=== PATIENT | female | born 1950 | race Caucasian/White ===

== ENCOUNTER 2018-11-11 12:34 | Inpatient (IN) | payer MEDICARE, OTHER ==
[~2018-11-11] VITALS: Ht 149.9 cm; Wt 99.8 kg
[~2018-11-11 12:34] MED LIST: ACETAMINOPHEN325 M1; AMOXICILLIN875 MG; ARIXTRA; ASPIRIN EC325 M1; COLACE100 MG; CORTISPORIN OTI10 M2 OT; CORTISPORIN OTI10 ML; DOXYCYCLINE PO; HUMALOG100 UNIT/1; HUMALOG100 UNIT/1 SUBQ; HYZAAR 100-251 EACH; HYZAAR 100-251 EACH PO; LANTUS; LANTUS SUBQ; LOPRESSOR 50 MG50 M1; METAMUCIL PAC1 UDPK1; NORCO 5-325 TA1 EACH PO; OXYCODONE HCL 55 MG; PERCOCET 5-3251 EACH; PHENOBARBITAL97.2 M2; PHENOBARBITAL97.2 M2 PO; PROZAC 20 MG20 MG PO; SIMVASTATIN20 MG PO; TOPROL XL50 MG PO; ZOCOR 20 MG TAB20 M1; ZYRTEC; ZYRTEC-D TABLE1 EAC1 PO
[2018-11-11] MEDS ORDERED: ZOCOR20 MG PO (12:42)
[2018-11-11] MEDS ORDERED: [UNRECOGNIZED DRUG - CODE] PO (12:43)
[2018-11-11] MEDS ORDERED: NEURONTIN 300300 M1 PO (12:45)
[2018-11-11] MEDS ORDERED: FLONASE 0.05%50 MCG NASAL (12:45)
--- NOTE | 2018-11-11 12:58 | NUR ---
XRAY AT BEDSIDE.
[2018-11-11 15:01] LABS: ABSOLUTE LYMPHOCYTES 0.9 thou/uL (0.8-5.3); ABSOLUTE MONOCYTES 0.5 thou/uL (0.0-1.2); BASOPHILS 0.3 %; EOSINOPHILS 0.5 %; HEMATOCRIT 37.7 % (37.0-47.0); HEMOGLOBIN 12.8 gm/dL (12.0-15.0); MCH 30.1 pg (26.0-34.0); MCHC 33.8 g/dL (28.0-37.0); MCV 88.9 fL (80.0-100.0); MONOCYTES 5.7 %; MPV 6.9 fl. (7.2-11.1); NUCLEATED RBCS 0 /100WBC; PLATELET COUNT* 298 thou/uL (150-400); POLYS 82.5 %; RBC 4.24 mil/uL (4.20-5.00); RDW-CV 13.3 % (10.5-14.5); WBC 8.5 thou/uL (4.0-11.0)
[2018-11-11 15:13] LABS: APTT 22.9 Seconds (25.0-31.3); PROTIME 10.3 Seconds (9.20-11.50)
[2018-11-11 15:31] LABS: CALCIUM 9.1 mg/dL (8.5-10.1); CREATININE 0.7 mg/dL (0.6-1.3); POTASSIUM 3.9 mmol/L (3.5-5.1)
[2018-11-11 15:37] LABS: ALBUMIN 3.4 g/dL (3.4-5.0); TOTAL BILIRUBIN 0.3 mg/dL (<0.1-1.0)
[2018-11-11 17:03] VITALS: BP 147/66
[2018-11-11 17:27] VITALS: BP 141/93
--- NOTE | 2018-11-11 18:00 | NUR ---
PATIENT ARRIVED TO UNIT AT APPROX 1730. ALERT AND OREINTED X4. ADMISSION HISTORY AND ASSESSMENT COMPLETED AND CHARTED. VSS ON ROOM AIR, NO COMPLAINTS IN PAIN AT THIS TIME. FLUIDS INFUSING ORDERED. PATIENT IS BEDREST AND WILL USE BEDPAN FOR VOIDING. FALL PRECAUTIIONS IN PLACE. CALL LIGHT WITHIN REACH. NURSING WILL CONTINUE TO MONITOR.
--- NOTE | 2018-11-11 20:08 | NUR ---
PATIENT REFUSED TO HAVE SEIZURE PADS PLACED ON HER BED. THIS NURSE ADVISED AGAINST THIS AND EDUCATED ON THE RISKS OF INJURY SHOULD A SEIZURE OCCUR, PATIENT STILL REFUSED.
[2018-11-11 21:00] VITALS: BP 141/47
[2018-11-12] VITALS (8 sets, daily range): BP systolic 115–165; BP diastolic 47–96
[2018-11-12 07:19] LABS: HEMATOCRIT 34.8 % (37.0-47.0); HEMOGLOBIN 11.7 gm/dL (12.0-15.0); MCH 30.1 pg (26.0-34.0); MCHC 33.7 g/dL (28.0-37.0); MCV 89.3 fL (80.0-100.0); RBC 3.9 mil/uL (4.20-5.00); RDW-CV 13.2 % (10.5-14.5)
[2018-11-12 07:28] LABS: CALCIUM 8.1 mg/dL (8.5-10.1); CREATININE 0.7 mg/dL (0.6-1.3); MAGNESIUM 1.8 mg/dL (1.8-2.4); POTASSIUM 4.1 mmol/L (3.5-5.1)
--- NOTE | 2018-11-12 08:49 | NUR ---
PATIENT HAS SLEPT WELL THROUGHOUT THE NIGHT. VSS ON RA. PAIN WELL CONTROLLED. PAIN MEDICATION GIVEN NEEDED AND CHARTED. PATIENT HAS REMAINED NPO SINCE MIDNIGHT D/T SHCEDULED SURGERY THIS AM. IV IN LEFT AC-NS @ 100ML/HR. SPLINT TO RIGHT LEG IS C/D/I. FALL PRECAUTIONS IN PLACE AND HOURLY ROUNDS MADE. WILL CONTINUE WITH PLAN OF CARE AND NURSING TO MONITOR.
--- NOTE | 2018-11-12 10:21 | NUR ---
PT ALERT AND ORIENTED X 4. NPO SINCE MIDNOC. IVF INFUSING. RECEIVED IV FENTANYL FOR PAIN CONTROL. PARTICIPATED IN THERAPIES THIS MORNING. RIGHT LOWER EXTREMITY SPLINT-C/D/I. PT TO PROCEDURE @ 1010 BY BED.
--- NOTE | 2018-11-12 14:27 | NUR ---
PRINTED CIRCUIT BOARD LAYOUT DESIGNER ATTEMPTED TO MEET PATIENT TO COMPLETE ASSESSMENT. PATIENT OUT OF THE ROOM HAVING PROCEDURE DONE. CM WILL F/U TO COMPLETE ASSESSMENT. P.T. INFORMS THAT THE PATIENT HAS 2 STEPS TO THE ENTRY OF HER HOME, AND HER SPOUSE IS NOT ABLE TO ASSIST HER AT D/C. SO SHE MAY NEED SNF AT D/C. CM WILL F/U TO DISCUSS FURTHER.
--- NOTE | 2018-11-12 15:27 | EKG ---
[place] [address] ELECTROCARDIOGRAM REPORT Name: ROSELIA MATHIAS Room: [address] ADM IN .R.#: [id number] Admission: 11/11/18 Attend Phys: Harshad Mukherjee MD Discharge: Date of : 48 Report #: [id number] THIS REPORT FOR: //name// [facility] ED Test Date: 2018-11-11 Test Time: 14:50:27 Pat Name: ROSELIA MATHIAS Department: Room: [facility] Gender: F Community Dietitian: TANA : 1950 Requested By: Malachi Elder Order Number: [id number] MD: Emir Eason Measurements Intervals [place] Rate: 83 P: 52 FL: 182 QRS: -5 QRSD: 85 T: 119 QT: 391 QTc: 460 Interpretive Statements Sinus rhythm Low voltage, precordial leads Anteroseptal infarct, old Nonspecific T abnormalities, lateral leads Compared to ECG 01/29/2012 12:05:10 Myocardial infarct finding now present T-wave abnormality now present Electronically Signed On 11-12-2018 15:26:57 CHEMICAL DETECTION EXPERT by Emir Eason [email or web address] <ELECTRONICALLY SIGNED> By: Emir Eason MD, [facility] 11/12/18 1526 1450 1450 Emir Eason MD, [facility] /EPI
--- NOTE | 2018-11-12 18:53 | NUR ---
PT RETURNED TO UNIT @ 1235. PT NON-WEIGHT BEARING. UP TO BSC WITH A X 1. IV PATENT. PT HAS SUCTION SET UP FOR MUCOUS. RECEIVED IV ZOFRAN FOR NAUSEA AND FENTANYL FOR PAIN. INSULIN HELD IN AM. PT REFUSED ADDITIONAL INSULIN PER SLIDING SCALE @ 1630. ABLE TO TOLERATE DINNER. DRESSING ON RLE-C/D/I. HOURLY ROUNDS MAINTAINED. CALL LIGHT WITHIN REACH.
[2018-11-13 04:00] VITALS: BP 138/44
--- NOTE | 2018-11-13 05:35 | NUR ---
PT POST OP ORIF OF RIGHT TIBIA. PROPER ALIGNMENT MAINTAINED. EXTREMITY ELEVATED ON PILLOW. PT RECIEVING PO NORCO FOR PAIN CONTROL WITH GOOD RESULTS. PT HAS CONTINUOUS PULSE OXYMETRY. PT WEARING CPAP TO FOR OBSTRUCTIVE SLEEP APNEA. O2 SAT > 94% DURING SHIFT. PT HAD LOW GRADE TEMP AT MIDNIGHT. HEART RATE AND BLOOD PRESSURE WITHIN NORMAL LIMITS. NO ACUTE CHANGES, WILL CONTINUE PLAN OF CARE.
[2018-11-13 08:00] VITALS: BP 106/43
--- NOTE | 2018-11-13 16:59 | NUR ---
SPOKE TO THE PATIENT TO DISCUSS HER HOME SITUAION, DISCHARGE PLANNING, AND TO INFORM OF THE ROLE OF CM. PATIENT ALERT AND ORIENTED. 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 PATIENT INFORMS THAT SHE PAYS A LADY TO DEEP CLEAN HER HOME ONCE A MONTH. PATIENT RESIDES AT HOME WITH SPOUSE, BUT INFORMS THAT HE IS UNABLE TO ASSIST HER AT HOME WITH CARES. PATIENT OWNS A ROLLATOR WALKER THAT HER DTR PURCHASED. PATIENT HAS NO HX OF HH OR SNF AND PLANS TO RETURN HOME AT D/C. PATIENT'S DTR ON HER WAY HERE FROM [place] AND SHE WILL STAY WITH THE PATIENT FOR 5 DAYS AT D/C AND A FAMILY FRIEND PLANS TO STAY WITH THE PATIENT FOR THE REMAINDER OF THE TIME NEEDED. PATIENT WILL NEED A WALKER, AND W/C AT D/C. D/C FIRE POT OPERATOR PROVIDED INFO TO THE PATIENT FOR W/C RENTAL WITH [facility] [employer] [employer] ([phone]). D/C FIRE POT OPERATOR SPOKE TO OJ WITH PROVIDER [employer] TO INFORM OF THE NEED TO CHECK PATIENT'S BENEFITS FOR A WALKER. OJ RETURNED CALL TO INFORM THAT THE PATIENT WAS APPROVED FOR A WALKER. P.T. TO DISPENSE WALKER FOR THE PATIENT PRIOR TO D/C. CM WILL REMAIN AVAILABLE TO ASSIST AND FOLLOW NEEDED.
[2018-11-13 17:03] VITALS: BP 127/52
--- NOTE | 2018-11-13 18:44 | NUR ---
PT IS ALERT AND ORIENTED X 4. RIGHT FOOT PAIN MANAGED WITH PO HYDROCODONE. DENIES NAUSEA. PARTICIPATED WITH THERAPY DURING THE DAY. UP WITH ASSIST X 1-2 WITH GAIT BELT AND WALKER. DRESSING ON RIGHT LOWER EXTREMITY-C/D/I. HOURLY ROUNDS MAINTAINED. CALL LIGHT WITHIN REACH.
[2018-11-13 21:40] VITALS: BP 130/54
--- NOTE | 2018-11-14 05:44 | NUR ---
PT SLEPT MOST OF SHIFT. ASSESSMENT DOCUMENTED. MEDS GIVEN PER E-DEC. IV PATENT. PAIN MEDS GIVEN PER E-MAR WITH RELIEF. DRESSING TO LEG C/D/I. NIGHT TIME INSULIN GIVEN WITH SNACK. PT VOIDED PER BSC. PT EXPRESSED CONCERNS OF NOT HAVING A BOWEL MOVEMENT YET AND REQUESTS TO TAKE SOMETHING IN THE MORNING TO HELP. WILL CONTINUE WITH PLAN OF CARE.
[2018-11-14 09:00] VITALS: BP 145/90
[2018-11-14 14:59] VITALS: BP 145/90
--- NOTE | 2018-11-14 15:01 | NUR ---
Patient and family now agreeable with home health. Physician wrote orders. Faxed orders to [facility] and called to confirm receipt. Faxed ambulance transfer form to [facility] and RN will call to schedule transport. No other needs identified.
[2018-11-14 16:05] VITALS: BP 145/90
[2018-11-14] MEDS ORDERED: NORCO 5-325 TA1 EACH PO (16:16)
[2018-11-14] MEDS ORDERED: ULTRAM 50MG TAB50 MG PO (16:17)
[2018-11-14] MEDS ORDERED: LITE COAT ASPI325 MG PO (16:24)
--- NOTE | 2018-11-14 17:55 | NUR ---
PATIENT DISCHARGED FROM UNIT AT 1730. ALERT AND ORIENTED X 4. VITAL SIGNS STABLE ON ROOM AIR. IV DISCONTINUED. DENIES NAUSEA. PAIN MANAGED WITH PO PAIN MEDICATION. DISCHARGE INSTRUCTIONS, MEDICATION INFORMATION, AND SCRIPTS GIVEN TO PATIENT. LEFT WITH ALL BELONGINGS. PATIENT LEFT WITH EMS VIA AMBULANCE TO TRANSPORT HOME.
[2018-11-14 18:11] VITALS: BP 145/90
--- NOTE | 2018-11-18 08:35 | OP ---
[address] [address] OPERATIVE REPORT Name: ROSELIA MATHIAS Brian Room: [address]#: [id number] Admission: 11/11/18 Attend Phys: Harshad Mukherjee MD Discharge: 11/14/18 Date of : 48 Report #: [id number] THIS REPORT FOR: //name// CC: Ruth Mukherjee DICTATED BY: Marvel Walls DO DATE OF SERVICE: 11/12/2018 POSTOPERATIVE DIAGNOSIS: Closed right bimalleolar ankle fracture. PROCEDURE: 1. Closed reduction right bimalleolar ankle fracture. 2. Physician-guided fluoroscopy. SURGEON: Tim Mac DO STITCHDOWNS TOE FORMER: Marvel Walls DO ANESTHESIA: General LMA. ESTIMATED BLOOD LOSS: 0 mL. PREOPERATIVE ANTIBIOTICS: None. DRAINS: None. COMPLICATIONS: None. CONDITION OF PATIENT: Stable to PACU. INDICATIONS FOR PROCEDURE: This 67-year-old female suffered a right bimalleolar ankle fracture with lateral subluxation. She was placed in a splint and admitted to the hospital with this injury. Orthopedics was consulted and made aware of the injury and the patient will need operative fixation; however, swelling will inhibit that being done acutely and with the way her tibiotalar joint was sitting, recommended a closed reduction for comfort and better control of the swelling. DESCRIPTION OF PROCEDURE: Once written and verbal consent was obtained, the patient was taken from the preoperative holding area to the operating suite, given the benefit of general anesthesia. Her splint was removed. Timeout was performed to verify the correct operative site, location and procedure. Closed reduction was performed using fluoroscopy. A posterior splint and stirrup was placed to hold the reduction. Fluoroscopy was used to verify the reduction. [address] [address] OPERATIVE REPORT Name: ROSELIA MATHIAS Room: [address]#: [id number] Admission: 11/11/18 Attend Phys: Harshad Mukherjee MD Discharge: 11/14/18 Date of : 48 Report #: [id number] The splint was hardened and once splint placed and wrapped, the patient was awakened, taken to PACU in stable condition. The patient tolerated the procedure well. No complications. POSTOPERATIVE COURSE: The patient will be nonweightbearing. She will follow up in the outpatient clinic in 7 days for surgical planning and scheduling. <ELECTRONICALLY SIGNED> By: Carlos Howell DO 11/18/18 0835 1133 [id number] Mac DO /nt
== END 2018-11-14 17:30 | disposition home health service (06) | DRG 563 ==
LOC: M.ERS 12:34 → M.TBA-ER 16:29 → M.ORTHSURG 16:29
PROVIDERS: Family Medicine; ADMIT Family Medicine
DX: S82.841A Displaced bimalleolar fracture of right lower leg, initial encounter for closed fracture (principal); I10 Essential (primary) hypertension; E11.9 Type 2 diabetes mellitus without complications; E78.00 Pure hypercholesterolemia, unspecified; S93.431A Sprain of tibiofibular ligament of right ankle, initial encounter; Z96.653 Presence of artificial knee joint, bilateral; G40.909 Epilepsy, unspecified, not intractable, without status epilepticus; G47.33 Obstructive sleep apnea (adult) (pediatric); W00.0XXA Fall on same level due to ice and snow, initial encounter; Y93.89 Activity, other specified; Y92.89 Other specified places as the place of occurrence of the external cause; Y99.8 Other external cause status; Z79.4 Long term (current) use of insulin; Z79.899 Other long term (current) drug therapy; Z88.8 Allergy status to other drugs, medicaments and biological substances

== ENCOUNTER 2018-11-27 15:40 | Inpatient (IN) | payer MEDICARE, OTHER ==
[~2018-11-27] VITALS: Ht 149.9 cm; Wt 98.9 kg
[~2018-11-27 15:40] MED LIST changes: +FLONASE 0.05%50 MCG NASAL; +LITE COAT ASPI325 MG PO; +LOSARTAN-HCTZ1 EAC3 PO; +NEURONTIN 300300 M1 PO; +SENNA PLUS TAB1 EACH PO; +ULTRAM 50MG TAB50 MG PO; +ZOCOR20 MG PO
[2018-11-27 18:53] VITALS: BP 153/71
[2018-11-27] MEDS ORDERED: NORCO 5-325 TA1 EACH PO (19:43)
[2018-11-27] MEDS ORDERED: TRAMADOL 50 MG50 MG PO (19:44)
[2018-11-27 20:00] VITALS: BP 190/95
[2018-11-28 04:32] LABS: MCH 30.5 pg (26.0-34.0); MCHC 34.4 g/dL (28.0-37.0); MCV 88.6 fL (80.0-100.0); MPV 6.9 fl. (7.2-11.1); RBC 3.62 mil/uL (4.20-5.00); RDW-CV 13.3 % (10.5-14.5); WBC 5.5 thou/uL (4.0-11.0)
[2018-11-28 04:48] LABS: CALCIUM 8.3 mg/dL (8.5-10.1); CREATININE 0.7 mg/dL (0.6-1.3); POTASSIUM 3.8 mmol/L (3.5-5.1)
[2018-11-28 08:45] VITALS: BP 142/55
[2018-11-28 20:54] VITALS: BP 129/56
[2018-11-29 08:37] VITALS: BP 135/60
[2018-11-29 19:45] VITALS: BP 130/62
[2018-11-30 08:21] VITALS: BP 150/85
[2018-11-30 19:45] VITALS: BP 148/56
[2018-12-01 08:00] VITALS: BP 133/45
[2018-12-01 20:00] VITALS: BP 132/68
[2018-12-02 07:30] VITALS: BP 138/58
[2018-12-02 20:33] VITALS: BP 150/68
[2018-12-03 07:48] VITALS: BP 141/63
[2018-12-03 20:36] VITALS: BP 148/53
[2018-12-04 08:20] VITALS: BP 143/59
[2018-12-04 20:33] VITALS: BP 129/60
[2018-12-05 07:00] VITALS: BP 145/45
[2018-12-05 20:36] VITALS: BP 135/69
[2018-12-06 08:30] VITALS: BP 172/64
[2018-12-06 20:00] VITALS: BP 134/53
[2018-12-07 09:43] VITALS: BP 147/75
[2018-12-07 19:54] VITALS: BP 144/62
[2018-12-08 07:57] VITALS: BP 139/56
[2018-12-08 20:34] VITALS: BP 127/49
[2018-12-09 04:27] LABS: ABSOLUTE BASOPHILS 0.1 thou/uL (0.0-0.2); ABSOLUTE EOSINOPHILS 0.3 thou/uL (0.0-0.7); ABSOLUTE LYMPHOCYTES 2.1 thou/uL (0.8-5.3); ABSOLUTE MONOCYTES 0.5 thou/uL (0.0-1.2); ABSOLUTE NEUTROPHILS 2.4 thou/uL (1.6-8.1); EOSINOPHILS 4.8 %; HEMATOCRIT 34.4 % (37.0-47.0); HEMOGLOBIN 11.6 gm/dL (12.0-15.0); LYMPHOCYTES 39.5 %; MCH 30.2 pg (26.0-34.0); MCHC 33.7 g/dL (28.0-37.0); MCV 89.6 fL (80.0-100.0); MONOCYTES 9.7 %; MPV 7.3 fl. (7.2-11.1); NUCLEATED RBCS 0 /100WBC; PLATELET COUNT* 400 thou/uL (150-400); RBC 3.83 mil/uL (4.20-5.00); RDW-CV 13.7 % (10.5-14.5); WBC 5.3 thou/uL (4.0-11.0)
[2018-12-09 04:28] LABS: CALCIUM 8.6 mg/dL (8.5-10.1); CREATININE 0.6 mg/dL (0.6-1.3); POTASSIUM 3.7 mmol/L (3.5-5.1)
[2018-12-09 08:35] VITALS: BP 138/62
[2018-12-09 13:35] VITALS: BP 138/62
[2018-12-09 13:56] VITALS: BP 138/62
== END 2018-12-09 15:41 | disposition home health service (06) | DRG 563 ==
LOC: M.REH 15:40
PROVIDERS: Family Medicine; ADMIT Physical Medicine & Rehabilitation
DX: S82.831A Other fracture of upper and lower end of right fibula, initial encounter for closed fracture (principal); G47.33 Obstructive sleep apnea (adult) (pediatric); G40.909 Epilepsy, unspecified, not intractable, without status epilepticus; E78.5 Hyperlipidemia, unspecified; I10 Essential (primary) hypertension; E11.9 Type 2 diabetes mellitus without complications; W00.0XXA Fall on same level due to ice and snow, initial encounter; Y93.29 Activity, other involving ice and snow; Y92.89 Other specified places as the place of occurrence of the external cause; Y99.8 Other external cause status; Z91.048 Other nonmedicinal substance allergy status; Z79.899 Other long term (current) drug therapy; Z79.82 Long term (current) use of aspirin; Z79.4 Long term (current) use of insulin; Z96.651 Presence of right artificial knee joint; E78.00 Pure hypercholesterolemia, unspecified

== ENCOUNTER → 2021-01-05 | Outpatient (CLI) | payer MEDICARE, OTHER ==
[~2021-01-05] MED LIST changes: +TRAMADOL 50 MG50 MG PO
[2021-01-05 09:01] LABS: ABSOLUTE EOSINOPHILS 0.2 thou/uL (0.0-0.7); ABSOLUTE LYMPHOCYTES 1.8 thou/uL (0.8-5.3); ABSOLUTE MONOCYTES 0.6 thou/uL (0.0-1.2); ABSOLUTE NEUTROPHILS 3.4 thou/uL (1.6-8.1); BASOPHILS 0.7 %; HEMOGLOBIN 12.4 gm/dL (12.0-15.0); LYMPHOCYTES 29.7 %; MCH 29.3 pg (26.0-34.0); MCHC 33.5 g/dL (28.0-37.0); MCV 87.5 fL (80.0-100.0); MONOCYTES 10.1 %; MPV 6.8 fl. (7.2-11.1); NUCLEATED RBCS 0 /100WBC; PLATELET COUNT* 304 thou/uL (150-400); POLYS 55.5 %; RBC 4.23 mil/uL (4.20-5.00); RDW-CV 13.2 % (10.5-14.5); WBC 6.2 thou/uL (4.0-11.0)
[2021-01-05 09:13] LABS: ALBUMIN 3.3 g/dL (3.4-5.0); ALKALINE PHOSPHATASE 128 U/L (46-116); ANION GAP 9 mmol/L (7-16); CALCIUM 8.8 mg/dL (8.5-10.1); CHLORIDE 104 mmol/L (98-107); CHOLESTEROL 139 mg/dL (<200); CO2 30 mmol/L (21-32); CREATININE 0.7 mg/dL (0.6-1.3); GLUCOSE 125 mg/dL (70-99); HDL CHOLESTEROL 35 mg/dL (>40); LDL CHOLESTEROL 78 mg/dL (<100); POTASSIUM 3.7 mmol/L (3.5-5.1); SGOT 18 U/L (15-37); SGPT 28 U/L (30-65); SODIUM 143 mmol/L (136-145); TOTAL BILIRUBIN 0.3 mg/dL (<0.1-1.0); TOTAL PROTEIN 7.1 g/dL (6.4-8.2); TRIGLYCERIDE 133 mg/dL (<150); VLDL 27 mg/dL (<40)
[2021-01-05 09:14] LABS: SERUM ASSESSMENT Clear
[2021-01-05 09:28] LABS: BUN 21 mg/dL (7-18)
[2021-01-06 02:06] LABS: GLYCOHEMOGLOBIN (HGB A1C) 7.9 % (4.8-5.6)
== END ==
LOC: M.LAB 08:32
PROVIDERS: ATTEND Internal Medicine Endocrinology, Diabetes & Metabolism
DX: E78.00 Pure hypercholesterolemia, unspecified (principal); E10.319 Type 1 diabetes mellitus with unspecified diabetic retinopathy without macular edema

== ENCOUNTER → 2021-02-19 | Outpatient (CLI) | payer MEDICARE ==
[2021-02-19 13:28] LABS: ABSOLUTE BASOPHILS 0.1 thou/uL (0.0-0.2); ABSOLUTE EOSINOPHILS 0.2 thou/uL (0.0-0.7); ABSOLUTE LYMPHOCYTES 1.6 thou/uL (0.8-5.3); ABSOLUTE MONOCYTES 0.6 thou/uL (0.0-1.2); ABSOLUTE NEUTROPHILS 4.5 thou/uL (1.6-8.1); BASOPHILS 0.8 %; EOSINOPHILS 3.3 %; HEMATOCRIT 38.2 % (37.0-47.0); HEMOGLOBIN 12.9 gm/dL (12.0-15.0); LYMPHOCYTES 22.3 %; MCHC 33.7 g/dL (28.0-37.0); MONOCYTES 9.1 %; MPV 6.6 fl. (7.2-11.1); NUCLEATED RBCS 0 /100WBC; PLATELET COUNT* 339 thou/uL (150-400); POLYS 64.5 %; RBC 4.29 mil/uL (4.20-5.00); RDW-CV 13.7 % (10.5-14.5)
[2021-02-19 14:11] LABS: % SATURATION 29 % (20-39); IRON 88 ug/dL (50-175)
== END ==
LOC: M.LAB 13:02
DX: G47.61 Periodic limb movement disorder (principal)